=== PATIENT | female | born 1995 | race Two or more races ===

== ENCOUNTER 2019-11-19 18:12 | Emergency (ER) | payer OTHER ==
[~2019-11-19] VITALS: Ht 154.9 cm; Wt 72.6 kg
[2019-11-19 18:21] VITALS: BP 124/84
[2019-11-19] MEDS ORDERED: IBUPROFEN600 M1 ORAL (18:42)
--- NOTE | 2019-11-19 18:47 | Emergency Room Report ---
History of Present Illness General Chief Complaint: Pain Source: Patient Present Illness HPI Disclaimer: Please note that this report is being documented using DRAGON technology. This can lead to erroneous entry secondary to incorrect interpretation by the dictating instrument. HPI: 24-year-old right-handed otherwise healthy female presents for evaluation of wrist pain. Symptoms present for approximately 1 week. She notes pain in the left wrist with flexion and intermittent numbness tingling of the digits. Retains full use of the left hand and wrist. Denies any trauma, recent exertion , weight lifting, awkward positions at the wrist was then. States when the wrist is at rest it is not tender only with significant flexion. She does a lot of typing but is never had wrist issues in the past. No pain in the right wrist. Has not taken any medications prior to arrival. PMH: Denied PSH: Denied Allergies: Denied Social Hx: Denied Allergies: Coded Allergies: No Known Allergies (Unverified , 11/19/19) COVID-19 Screening Contact w/high risk pt: No Experienced COVID-19 symptoms?: No COVID-19 Testing performed BELL CAPTAIN: No Patient History Last Menstrual Period: 10/25/19 Now: No Nursing Documentation-PMH Past Medical History: No Stated History Review of Systems All Other Systems: negative except mentioned in HPI Physical Exam Vital Signs Date Time Temp Pulse Resp B/P (MAP) Pulse Ox O2 Delivery O2 Flow Rate FiO2 11/19/19 18:21 99.7 97 17 124/84 (97) 98 Room Air General: Awake and alert, no acute distress HEENT: NC/AT. EOMI. Resp: Normal work of breathing Skin: Intact. No abrasions, laceration or rash over the exposed skin MSK: Normal tone and bulk. Moving all extremities. No obvious deformity. No tenderness to palpation over the volar or dorsal aspect of the wrist, hand. Able to flex and extend all digits. No tenderness over the thumb spica. No overlying edema, erythema, skin breakdown, bruising or other signs of injury. Patient reports pain over the dorsal aspect of the wrist with flexion consistent with a positive Tinel sign. Negative Blaze test. Brisk capillary refill in all digits. Sensation over the medial and ulnar aspect of all digits intact and symmetrical. Neuro: Awake and alert. Mentating appropriately Procedures Splinting Splinting : Consent: Verbal Pre-Made Type: velcro Splint: wrist Pre-Proc Neuro Vasc Exam: normal Post-Proc Neuro Vasc Exam: normal Patient Tolerated: Well Complications: None Medical Decision Making Diagnostic Impression: Primary Impression: Wrist strain Additional Impression: Carpal tunnel syndrome ER Course 24-year-old right-handed female presents for evaluation of left wrist pain without injury. No evidence of bony trauma. Possible ligamentous strain, carpal tunnel syndrome, other median nerve syndrome, ganglion cyst, overuse injury. No trauma, no bony tenderness and no indication for imaging. Will place in splint and start NSAIDs for possible median nerve entrapment syndrome such as carpal tunnel syndrome. Patient be referred to her PMD for further testing as needed. Instructed to return to the ED with new or worsening symptoms. She understands and agrees with treatment plan. Last Vital Signs Date Time Temp Pulse Resp B/P (MAP) Pulse Ox O2 Delivery O2 Flow Rate FiO2 11/19/19 18:21 99.7 97 17 124/84 (97) 98 Room Air Disposition: HOME, SELF-CARE Condition: Stable Scripts Ibuprofen* (MOTRIN*) 600 Mg Tablet 600 MG ORAL Q6H PRN for For Pain, #30 TAB 0 Refills Prov: Antonio Marino MD 11/19/19 Referrals: [facility] Patient Instructions: Carpal Tunnel Syndrome Additional Instructions: Follow-up with your primary care doctor to discuss today's emergency department visit and your recent wrist pain. Wear the splint as instructed. Use Tylenol, Motrin and rest the wrist as much as possible. Follow-up with your doctor for further testing and imaging as needed. If you notice sudden swelling, bruising , redness, inability move the hand, sudden weakness, loss of sensation or any other symptoms return to the emergency department for reevaluation. Antonio Marino MD Nov 19, 2019 18:47
[2019-11-19 18:48] VITALS: BP 120/80
== END 2019-11-19 18:50 | disposition home or self-care (01) ==
LOC: EMR 18:35
DX: S66.912A Strain of unspecified muscle, fascia and tendon at wrist and hand level, left hand, initial encounter (principal); G56.02 Carpal tunnel syndrome, left upper limb; X58.XXXA Exposure to other specified factors, initial encounter; Y92.9 Unspecified place or not applicable
CPT/HCPCS: 99282